=== PATIENT | male | born 1975 | race Caucasian/White ===

== ENCOUNTER 2016-08-04 07:00 | Inpatient (IN) | payer OTHER ==
[~2016-08-04] VITALS: Ht 180.3 cm; Wt 101.0 kg
[2016-09-04] VITALS (13 sets, daily range): BP systolic 100–117; BP diastolic 58–79; PULSE 65–82; RESP 15–22; Ht 180.3 cm; Wt 101.0 kg
[2016-09-04] MEDS ORDERED: SUCCINYLCHOLINE CHLORIDE 100 MG/5 ML SYG IV ONE (07:00)
[2016-09-04] MEDS ORDERED: CEFAZOLIN 2 GM/50 ML (PMX) 50 ML IVPB SCH (13:00)
[2016-09-04] MEDS ORDERED: LACTATED RINGER'S 1,000 ML IV* SCH (13:00)
[2016-09-04] MEDS ORDERED: GLYCOPYRROLATE 0.4 MG INJ ONE (13:01)
[2016-09-04] MEDS ORDERED: LIDOCAINE 2% (SDV) 5 ML INJ ONE (13:01)
[2016-09-04] MEDS ORDERED: NEOSTIGMINE 3 MG/3 ML SYRINGE ONE (13:01)
[2016-09-04] MEDS ORDERED: MIDAZOLAM 1 MG/ML 2 ML INJ ONE (13:01)
[2016-09-04] MEDS ORDERED: ROCURONIUM 50 MG INJ ONE (13:01)
[2016-09-04] MEDS ORDERED: PROPOFOL 20 ML ONE (13:01)
[2016-09-04] MEDS ORDERED: FENTAnyl 50 MCG/ML VIAL ONE ×2 (13:01→16:03)
[2016-09-04] MEDS ORDERED: ONDANSETRON 4 MG INJ ONE (13:02)
[2016-09-04] MEDS ORDERED: DEXAMETHASONE 4 MG/ML 1 ML INJ ONE (13:02)
[2016-09-04] MEDS ORDERED: THROMBIN 5000 UNIT VIAL ONE ×2 (13:35→13:43)
[2016-09-04] MEDS ORDERED: SODIUM CL BACTERIOSTATIC 30 ML INJ ONE (13:37)
[2016-09-04] MEDS ORDERED: CEFAZOLIN 1 GM INJ ONE (13:37)
[2016-09-04] MEDS ORDERED: HEPARIN 1000 UNITS/ML 10 ML INJ ONE (13:37)
[2016-09-04] MEDS ORDERED: SURGIFOAM POWDER 1 GM KIT ONE ×2 (13:37→17:03)
[2016-09-04] MEDS ORDERED: BUPIVACAINE 0.25%/EPI (SDV) 30 ML INJ ONE (13:38)
[2016-09-04] MEDS ORDERED: CA CHLORIDE 10% 10 ML SYRINGE ONE (13:44)
--- NOTE | 2016-09-04 14:04 | HPN ---
Date/Time of Note Date/Time of Note DATE: 09/04/16 TIME: 14:03 Interval H&P Admission Note Pt. seen H&P reviewed: No system changes JASE WOODS PA-C Sep 04, 2016 14:03
[2016-09-04] MEDS ORDERED: NALOXONE (0.4 MG/ML) INJ IV PRN (14:30)
[2016-09-04] MEDS ORDERED: ACETAMINOPHEN 325 MG TAB PO PRN (14:30)
[2016-09-04] MEDS ORDERED: AL HYDROX/MG HYDROX/SIMETH 30 ML CUP PO PRN (14:30)
[2016-09-04] MEDS ORDERED: HYDROmorphONE 1 MG/ML SYG IV PRN (14:30)
[2016-09-04] MEDS ORDERED: BISACODYL 10 MG SUPP PR PRN (14:30)
[2016-09-04] MEDS ORDERED: CEPASTAT LOZENGE MT PRN (14:30)
[2016-09-04] MEDS: CEFAZOLIN 1 GM/50 ML (PMX) 50 ML IVPB SCH ×2 (14:30→22:43)
[2016-09-04] MEDS ORDERED: DIPHENHYDRAMINE 50 MG INJ IV PRN (14:30)
[2016-09-04] MEDS ORDERED: ZOLPIDEM 5 MG TAB PO PRN (14:30)
[2016-09-04] MEDS ORDERED: LABETALOL HCL 20MG INJ ONE (15:08)
[2016-09-04] MEDS ORDERED: hydrALAzine 20 MG INJ ONE (15:10)
[2016-09-04] MEDS ORDERED: PHENYLephrine (100 MCG/ML) 5ML SYG ONE (15:37)
[2016-09-04] MEDS ORDERED: HEMOSTATIC MATRIX/ THROMBIN 1 EA SYG ZFS ONE (15:43)
[2016-09-04] MEDS ORDERED: CEFAZOLIN 1 GM INJ ZFS ONE (15:44)
[2016-09-04] MEDS ORDERED: BUPIVACAINE 0.25%/EPI (SDV) 30 ML INJ INJ ONE (15:46)
[2016-09-04] MEDS ORDERED: GELATIN SIZE 100 SPONGE ONE (16:06)
--- NOTE | 2016-09-04 17:11 | OPR ---
Date/Time of Note Date/Time of Note DATE: 09/04/16 TIME: 17:05 Operative Report Free Text/Dictation Co-surgeon Dr. Paramjit Herzog This operation was more difficult than usual secondary to previous nephrectomy that the patient had this added 40 minutes to the time of the exposure on the operation secondary to altered anatomy adhesions Procedure Date: Sep 04, 2016 Preoperative Diagnosis Degenerative disc disease L5-S1 Postoperative Diagnosis Degenerative disc disease L5-S1 Operation Performed Anterior retroperitoneal exposure interbody fusion at the level of L5-S1 Lysis of adhesions Surgeon: CHIOMA MONCADA MD Anesthesia: general Estimated Blood Loss: 50 - 100 ml's Complications: None Pt Condition Post Procedure: stable Indications Degenerative disc disease L5-S1 Operative\Procedure Findings Patient was taken to the operating room after induction of general anesthesia prepped and draped in usual sterile fashion Response complications alternative therapies explained to the patient consent obtained Risks and benefits of a splint to the patient included but not limited to bleeding infection damage to the bowel damage to ureter wound infection wound dehiscence is retrograde ejaculation and sexual dysfunction erectile dysfunction DVT PE the high risk nature of the operation fully explained and stressed to the patient I made a 8 cm incision left lower quadrant in a horizontal fashion Incision was then taken down to subcutaneous tissue which was then opened using electrocautery anterior rectus sheath was opened using electrocautery The left rectus muscle was retracted laterally retroperitoneal space was entered This operation was more difficult than usual secondary to previous nephrectomy that the patient had this added 40 minutes to the time of the exposure on the operation secondary to altered anatomy adhesions The retrocorneal space was entered retractors were placed retracting the bowel contents to the right and left rectus muscle to the left Adhesions were taken down The right iliac vessels were dissected using a peanut dissector The left iliac vessels were dissected using the peanut dissector the middle sacral vessels were ligated using titanium clips The risk exposure for L5-S1 disc space was obtained by retracting the right iliac vessels to the right and left iliac vessels to the left We proceeded with a discectomy and placement of the new cage Please refer to Dr. Herzog dictations for the details of that operation After all the x-rays were satisfactory read the wound was irrigated using antibiotic solution The anterior rectus sheath was closed using a #1 #1 Vicryl suture in a running fashion the wound was irrigated again and closed in 2 layers of 2-0 Vicryl suture for subcu and Steri-Strips for the skin The patient tolerated procedure well CHIOMA MONCADA MD Sep 04, 2016 17:11
--- NOTE | 2016-09-04 18:08 | OPPN ---
Date/Time of Note Date/Time of Note DATE: 09/04/16 TIME: 18:06 Operative Report Preoperative Diagnosis L5-S1 DDD and stenosis Postoperative Diagnosis L5-S1 DDD and stenosis Operation/Procedure Performed L5-S1 anterior and posterior fusion Provider: LADY JOHNSON MD psychiatric nursing assistant: JASE WOODS PA-C Anesthesia: general Estimated blood loss: 100 - 150 ml's Specimens L5-S1 disc Complications: None JASE WOODS PA-C Sep 04, 2016 18:08
[2016-09-04] MEDS: HYDROmorphONE 0.2 MG/ML PCA IV SCH ×2 (18:13→23:01)
[2016-09-04] MEDS ORDERED: HYDROmorphONE (0.2 MG/ML) 10ML SYG IV ONE (18:13)
[2016-09-04] MEDS: HYDROmorphONE (0.2 MG/ML) 10ML SYG IV PRN ×2 (18:29→18:47)
[2016-09-04] MEDS ORDERED: FENTAnyl 50 MCG/ML VIAL IV PRN (18:30)
[2016-09-04] MEDS ORDERED: ONDANSETRON 4 MG INJ IV PRN (18:30)
--- NOTE | 2016-09-04 20:12 | RADRPT ---
PROCEDURE: Intraoperative imaging of the lumbar spine with fluoroscopy. CLINICAL INDICATION: Back pain. Intraoperative. TECHNIQUE: 47 images of the lumbar spine were obtained in the operating room with an image intensi fier. No radiologist was in attendance. 75 seconds of fluoroscopy time was used. COMPARISON: No prior study is available for comparison. FINDINGS: For the purposes of this report, the last apparent true disc level is considered to be L5-S1. Based on this, anterior fusion is noted at L5-S1. Posterior pedicle screws and connecting rods are prese nt at L5-S1. IMPRESSION: 1. Intraoperative imaging of the lumbar spine. RPTAT: QQ .Omar Law MD, MD Date Time Electronically viewed and signed by .Omar Law MD, on 09/04/2016 20:11 .R/
--- NOTE | 2016-09-04 20:37 | RADRPT ---
PROCEDURE: Intraoperative imaging of the lumbar spine with fluoroscopy. CLINICAL INDICATION: Back pain. Intraoperative. TECHNIQUE: 12 images of the lumbar spine were obtained in the operating room with an image intensi fier. No radiologist was in attendance. 0.4 minutes of fluoroscopy time was used. COMPARISON: No prior study is available for comparison. FINDINGS: Images demonstrate anterior and posterior fusion at L5-S1. IMPRESSION: 1. Intraoperative imaging of the lumbar spine. RPTAT: QQ .Omar Law MD, MD Date Time Electronically viewed and signed by .Omar Law MD, MD on 09/04/2016 20:37 .R/
[2016-09-04] MEDS: D5W-0.45 NACL + KCL 20 MEQ 1,000 ML IV SCH (20:45)
[2016-09-04] MEDS: DOCUSATE SODIUM 100 MG CAP PO SCH (21:00)
[2016-09-04] MEDS: ZOLPIDEM 5 MG TAB PO PRN (22:03)
[2016-09-05] MEDS: D5W-0.45 NACL + KCL 20 MEQ 1,000 ML IV SCH ×3 (00:03→16:11)
[2016-09-05] MEDS: PANTOPRAZOLE 40 MG INJ IV SCH (05:09)
[2016-09-05 05:11] LABS: ADD SCAN DIFF NO
[2016-09-05 05:16] LABS: ABNORMAL IP MESSAGE 1; BASOPHILS % 0.1 % (0.0-2.0); HEMATOCRIT 41.1 % (42.0-52.0); LYMPHOCYTES # 0.6 10^3/ul (0.8-2.9); LYMPHOCYTES % 4.4 % (15.0-51.0); MEAN CORPUSCULAR HEMOGLOBIN 28.9 pg (29.0-33.0); MEAN CORPUSCULAR HGB CONC 34.1 g/dl (32.0-37.0); MEAN CORPUSCULAR VOLUME 84.7 fl (82.0-101.0); MEAN PLATELET VOLUME 9.7 fl (7.4-10.4); MONOCYTE # 0.4 10^3/ul (0.3-0.9); MONOCYTES % 3.5 % (0.0-11.0); NEUTROPHIL # 11.7 10^3/ul (1.6-7.5); NEUTROPHILS % 91.4 % (39.0-77.0); PLATELET COUNT 273 10^3/UL (140-415); RED BLOOD COUNT 4.85 10^6/ul (4.70-6.10); RED CELL DISTRIBUTION WIDTH 12.5 % (11.5-14.5); WHITE BLOOD COUNT 12.7 10^3/ul (4.8-10.8)
[2016-09-05] MEDS: HYDROmorphONE 0.2 MG/ML PCA IV SCH ×2 (05:20→16:09)
[2016-09-05 05:47] LABS: CALCIUM 8.6 mg/dl (8.4-10.2); CREATININE 1.1 mg/dl (0.61-1.24); MAGNESIUM 1.7 mg/dl (1.7-2.5); POTASSIUM 5.1 mmol/L (3.5-5.1)
[2016-09-05] MEDS: CEFAZOLIN 1 GM/50 ML (PMX) 50 ML IVPB SCH (06:03)
[2016-09-05] MEDS: ONDANSETRON 4 MG INJ IV PRN (06:53)
[2016-09-05 07:54] VITALS: BP 116/59; RESP 14
[2016-09-05] MEDS: DOCUSATE SODIUM 100 MG CAP PO SCH ×2 (09:33→20:12)
[2016-09-05 12:00] VITALS: BP 110/60; PULSE 77; RESP 18
[2016-09-05 16:20] VITALS: BP 142/72; PULSE 93; RESP 18
--- NOTE | 2016-09-05 17:03 | CONS ---
Date/Time of Note Date/Time of Note DATE: 09/05/16 TIME: 16:54 Assessment/Plan Assessment/Plan Additional Assessment/Plan 41-year-old gentleman with medical history significant for hypertension and obesity, presents to the hospital for an elective back surgery. Is currently status post L5-S1 anterior and posterior fusion, without any significant post operative complications. 1. L5-S1 fusion, pain control, PT OT evaluation and treatment, wound management per spinal surgery team\ 2. Hypertension, continue to monitor provide blood pressure medications as needed 3. Hyperkalemia, within normal limits continue to monitor 4. Full code Consultation Date/Type/Reason Admit Date/Time Sep 04, 2016 at 12:00 Date of Consultation: Sep 05, 2016 Type of Consultation: General internal medicine Reason for Consultation General medical management, hypertension, hyperkalemia. Hx of Present Illness Patient is a very pleasant 41-year-old gentleman with history of hypertension secondary to nonfunctioning kidney status post nephrectomy, presents to the hospital for an elective spinal procedure for chronic back pain. Patient underwent an elective L5-S1 anterior and posterior fusion, tolerated procedure well without any major complications. Patient is currently recovering on the hospital floor. Patient is currently chest pain, diaphoresis, shortness of breath. Does have some lightheadedness and dizziness with standing, which is expected. Patient's back pain has improved no fevers or chills. Tolerating oral diet. No evidence of numbness or tingling in the bilateral lower legs, patient noted mild swelling of his foot which can be expected. Constitutional: improved, no complaints Eyes: no complaints Cardiovascular: no complaints, No chest pain Gastrointestinal: no complaints, No pain Genitourinary: no complaints Past Medical History Hypertension, back pain, obesity. Past Surgical History Appendectomy, kidney removal. Family History Significant Family History: no pertinent family hx, other (Father with diabetes , mother with high blood pressure.) Social History Denies any current drugs, alcohol, tobacco. Alcohol Use: occasionally Smoking Status: Never smoker Exam/Review of Systems Vital Signs Vitals Vital Signs Date Time Temp Pulse Resp B/P Pulse Ox O2 Delivery O2 Flow Rate FiO2 09/05/16 16:20 97.0 93 18 142/72 98 Nasal Cannula 09/05/16 12:00 2.0 Intake and Output 09/04/16 09/04/16 09/05/16 15:00 23:00 07:00 Intake Total 1350 ml 170 ml Output Total 550 ml 500 ml Balance 800 ml -330 ml Exam Constitutional: alert, oriented, well developed Psych: no complaints Head: atraumatic, normocephalic Eyes: EOMI, nl conjunctiva ENMT: nl external ears & nose Neck: supple Respiratory: clear to auscultation Cardiovascular: regular rate and rhythm Gastrointestinal: nl liver, spleen, non-tender, soft Musculoskeletal: nl extremities to inspection Extremities: normal pulses, No calf tenderness Neurological: REMEDIAL MASSEUR II-XII intact, nl mental status, nl speech Skin: nl turgor Lymph: nl lymph nodes, No enlarged Results Result Diagram: 09/05/1643209/05/16432 Results 24 hrs Laboratory Tests Test 09/05/16 04:33 White Blood Count 12.7 H Red Blood Count 4.85 Hemoglobin 14.0 Hematocrit 41.1 L Mean Corpuscular Volume 84.7 Mean Corpuscular Hemoglobin 28.9 L Mean Corpuscular Hemoglobin Concent 34.1 Red Cell Distribution Width 12.5 Platelet Count 273 Mean Platelet Volume 9.7 Neutrophils % 91.4 H Lymphocytes % 4.4 L Monocytes % 3.5 Eosinophils % 0.0 Basophils % 0.1 Nucleated Red Blood Cells % 0.0 Neutrophils # 11.7 H Lymphocytes # 0.6 L Monocytes # 0.4 Eosinophils # 0.0 Basophils # 0.0 Nucleated Red Blood Cells # 0.0 Sodium Level 135 Potassium Level 5.1 Chloride Level 100 Carbon Dioxide Level 26 Anion Gap 14 Blood Urea Nitrogen 13 Creatinine 1.10 Glucose Level 173 Calcium Level 8.6 Magnesium Level 1.7 Medications Medications Current Medications Potassium Chloride/Dextrose/ Sod Cl (D5-1/2ns + KCl 20 Meq) 1,000 ml @ 100 mls/ hr Q10H IV Last administered on 09/05/16t 16:11; Admin Dose 100 MLS/HR; Start at 14:03 Oxycodone/ Acetaminophen (Endocet (10/ 325)) 1 tab Q4H PRN PO PAIN LEVEL 1-5; Start 09/06/16 at 10:00 Oxycodone/ Acetaminophen (Endocet (10/ 325)) 2 tab Q4H PRN PO PAIN LEVEL 6-10; Start 09/06/16 at 10:00 Hydromorphone HCl (Dilaudid) 0.2 mg Q1H PRN IV BREAKTHROUGH PAIN; Start at 14:30 Ondansetron HCl (Zofran Inj) 4 mg Q6H PRN IV NAUSEA AND/OR VOMITING Last administered on 09/05/16 06:53; Admin Dose 4 MG; Start 09/04/16 at 14:30 Bisacodyl (Dulcolax Supp) 10 mg DAILY PRN [place] CONSTIPATION; Start 09/04/16 at 14: 30 Docusate Sodium (Colace) 100 mg BID PO Last administered on 09/05/16 09:33; Admin Dose 100 MG; Start 09/04/16 at 21:00 Pantoprazole (Protonix Iv) 40 mg DAILY@06 IV Last administered on 09/05/16 05: 09; Admin Dose 40 MG; Start 09/05/16 at 06:00 Al Hydrox/Mg Hydrox/Simethicone (Mag-Al Plus) 15 ml Q6H PRN PO CONSTIPATION/ DYSPEPSIA; Start 09/04/16 at 14:30 Acetaminophen (Tylenol Tab) 650 mg Q4H PRN PO LORD OR TEMP GREATER THAN 101.3F; Start 09/04/16 at 14:30 Cyclobenzaprine HCl (Flexeril) 10 mg TID PRN PO MUSCLE SPASMS; Start 09/04/16 at 14:30 Phenol (Cepastat Lozenge) 1 lozenge PRN PRN [place] SORE THROAT; Start 09/04/16 at 14 :30 Diphenhydramine HCl (Benadryl) 25 mg Q6H PRN IV ITCHING; Start 09/04/16 at 14:30 Naloxone HCl (Narcan) 0.2 mg Q2M PRN IV RR 8 BREATHS/MIN OR LESS; Start at 14:30 Hydromorphone HCl (Dilaudid BULK CLERK) BULK CLERK to be started in PACU Q4PCA IV Last administered on 09/05/16 16:09; Admin Dose 6 MG; Start 09/04/16 at 14:30; Stop at 10:00 Miscellaneous Information 1. Hold BULK CLERK at 1,000... BULK CLERK IV ; Start 09/04/16 at 14: 30; Stop 09/06/16 at 10:00 ROSE ESCALONA MD Sep 05, 2016 17:03
[2016-09-05 19:25] VITALS: BP 147/65; RESP 18; RESP 20
[2016-09-05] MEDS: ZOLPIDEM 5 MG TAB PO PRN (21:01)
[2016-09-06 01:00] VITALS: BP 126/60; PULSE 72; RESP 18
[2016-09-06] MEDS: D5W-0.45 NACL + KCL 20 MEQ 1,000 ML IV SCH ×4 (03:32→23:30)
[2016-09-06] MEDS: HYDROmorphONE 0.2 MG/ML PCA IV SCH (03:38)
[2016-09-06 04:00] VITALS: BP 123/68; PULSE 75; RESP 18
[2016-09-06] MEDS: PANTOPRAZOLE 40 MG INJ IV SCH (05:06)
[2016-09-06 05:32] LABS: ADD SCAN DIFF NO
[2016-09-06 05:39] LABS: BASOPHILS % 0.3 % (0.0-2.0); EOSINOPHILS % 0.2 % (0.0-7.0); HEMATOCRIT 39.6 % (42.0-52.0); HEMOGLOBIN 13.4 g/dl (14.0-18.0); LYMPHOCYTES # 1.5 10^3/ul (0.8-2.9); LYMPHOCYTES % 14.3 % (15.0-51.0); MEAN CORPUSCULAR HEMOGLOBIN 28.8 pg (29.0-33.0); MEAN CORPUSCULAR HGB CONC 33.8 g/dl (32.0-37.0); MEAN CORPUSCULAR VOLUME 85.2 fl (82.0-101.0); MEAN PLATELET VOLUME 9.7 fl (7.4-10.4); MONOCYTE # 0.8 10^3/ul (0.3-0.9); MONOCYTES % 7.8 % (0.0-11.0); NEUTROPHIL # 8.1 10^3/ul (1.6-7.5); PLATELET COUNT 248 10^3/UL (140-415); RED BLOOD COUNT 4.65 10^6/ul (4.70-6.10); RED CELL DISTRIBUTION WIDTH 12.6 % (11.5-14.5); WHITE BLOOD COUNT 10.5 10^3/ul (4.8-10.8)
[2016-09-06 06:16] LABS: CALCIUM 8.9 mg/dl (8.4-10.2); CREATININE 0.91 mg/dl (0.61-1.24); MAGNESIUM 1.9 mg/dl (1.7-2.5)
[2016-09-06 08:04] VITALS: BP 130/73; RESP 17
[2016-09-06] MEDS: DOCUSATE SODIUM 100 MG CAP PO SCH ×2 (09:36→20:10)
[2016-09-06] MEDS: OXYCODONE/ACETAMINOPHEN (10/325) TAB PO PRN ×4 (09:37→23:59)
[2016-09-06] MEDS ORDERED: OXYCODONE/ACETAMINOPHEN (10/325) TAB PO PRN (10:00)
--- NOTE | 2016-09-06 10:44 | PN ---
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 +BS Results Result Diagram: 09/06/16 0442 09/06/16 0442 LADY JOHNSON MD Sep 06, 2016 10:44
[2016-09-06 19:15] VITALS: BP 131/69; RESP 18
--- NOTE | 2016-09-06 19:45 | CONS ---
Date/Time of Note Date/Time of Note DATE: 09/06/16 TIME: 19:43 Assessment/Plan Assessment/Plan Chief Complaint/Hosp Course Patient is a very pleasant 41-year-old gentleman with history of hypertension secondary to nonfunctioning kidney status post nephrectomy, presents to the hospital for an elective spinal procedure for chronic back pain. Patient underwent an elective L5-S1 anterior and posterior fusion, tolerated procedure well without any major complications. Patient is currently recovering on the hospital floor. Patient is currently chest pain, diaphoresis, shortness of breath. Does have some lightheadedness and dizziness with standing, which is expected. Patient's back pain has improved no fevers or chills. Tolerating oral diet. No evidence of numbness or tingling in the bilateral lower legs, patient noted mild swelling of his foot which can be expected. Problems: Additional Assessment/Plan 41-year-old gentleman with medical history significant for hypertension and obesity, presents to the hospital for an elective back surgery. Is currently status post L5-S1 anterior and posterior fusion, without any significant post operative complications. 1. L5-S1 fusion, pain control, PT OT evaluation and treatment, wound management per spinal surgery team -Continue rehab, pain control. DC planning per surgical team. 2. Hypertension, continue to monitor provide blood pressure medications as needed -Continue to monitor, provide as needed blood pressure medication as needed. 3. Hyperkalemia, within normal limits continue to monitor 4. Full code Dr. Raygoza will return tomorrow to medically follow. Consultation Date/Type/Reason Admit Date/Time Sep 04, 2016 at 12:00 Initial Consult Date 09/05/16 Type of Consultation: General internal medicine 24 HR Interval Summary Free Text/Dictation Patient states that he is improving overall, strength returning. Pain is controlled. No fevers or chills. Able to ambulate to the bathroom by himself, wound without any aches excessive drainage. Constitutional: improved, no complaints Exam/Review of Systems Vital Signs Vitals Vital Signs Date Time Temp Pulse Resp B/P Pulse Ox O2 Delivery O2 Flow Rate FiO2 09/06/16 19:15 98.3 103 18 131/69 96 09/06/16 04:00 Room Air 09/05/16 12:00 2.0 Intake and Output 09/05/16 09/05/16 09/06/16 15:00 23:00 07:00 Intake Total 2100 ml 1400 ml Output Total 2000 ml 400 ml Balance 100 ml 1000 ml Exam Constitutional: alert, oriented, well developed Psych: no complaints Head: atraumatic, normocephalic Eyes: nl conjunctiva Neck: supple Respiratory: clear to auscultation Cardiovascular: nl pulses, regular rate and rhythm Gastrointestinal: ascites, nl liver, spleen, soft Musculoskeletal: nl extremities to inspection Extremities: normal pulses Neurological: SURVEY ENGINEER II-XII intact, nl speech Results Result Diagram: 09/06/1644109/06/16441 Results 24 hrs Laboratory Tests Test 09/06/16 04:42 White Blood Count 10.5 Red Blood Count 4.65 L Hemoglobin 13.4 L Hematocrit 39.6 L Mean Corpuscular Volume 85.2 Mean Corpuscular Hemoglobin 28.8 L Mean Corpuscular Hemoglobin Concent 33.8 Red Cell Distribution Width 12.6 Platelet Count 248 Mean Platelet Volume 9.7 Neutrophils % 77.0 Lymphocytes % 14.3 L Monocytes % 7.8 Eosinophils % 0.2 Basophils % 0.3 Nucleated Red Blood Cells % 0.0 Neutrophils # 8.1 H Lymphocytes # 1.5 Monocytes # 0.8 Eosinophils # 0.0 Basophils # 0.0 Nucleated Red Blood Cells # 0.0 Sodium Level 139 Potassium Level 4.0 Chloride Level 98 Carbon Dioxide Level 29 Anion Gap 16 Blood Urea Nitrogen 13 Creatinine 0.91 Glucose Level 116 # Calcium Level 8.9 Magnesium Level 1.9 Medications Medications Current Medications Oxycodone/ Acetaminophen (Endocet (10/ 325)) 1 tab Q4H PRN PO PAIN LEVEL 1-5; Start 09/06/16 at 10:00 Oxycodone/ Acetaminophen (Endocet (10/ 325)) 2 tab Q4H PRN PO PAIN LEVEL 6-10 Last administered on 09/06/16 18:38; Admin Dose 2 TAB; Start 09/06/16 at 10:00 Hydromorphone HCl (Dilaudid) 0.2 mg Q1H PRN IV BREAKTHROUGH PAIN; Start at 14:30 Ondansetron HCl (Zofran Inj) 4 mg Q6H PRN IV NAUSEA AND/OR VOMITING Last administered on 09/05/16 06:53; Admin Dose 4 MG; Start 09/04/16 at 14:30 Bisacodyl (Dulcolax Supp) 10 mg DAILY PRN [place] CONSTIPATION; Start 09/04/16 at 14: 30 Docusate Sodium (Colace) 100 mg BID PO Last administered on 09/06/16 09:36; Admin Dose 100 MG; Start 09/04/16 at 21:00 Pantoprazole (Protonix Iv) 40 mg DAILY@06 IV Last administered on 09/06/16 05: 06; Admin Dose 40 MG; Start 09/05/16 at 06:00 Al Hydrox/Mg Hydrox/Simethicone (Mag-Al Plus) 15 ml Q6H PRN PO CONSTIPATION/ DYSPEPSIA; Start 09/04/16 at 14:30 Acetaminophen (Tylenol Tab) 650 mg Q4H PRN PO LORD OR TEMP GREATER THAN 101.3F; Start 09/04/16 at 14:30 Cyclobenzaprine HCl (Flexeril) 10 mg TID PRN PO MUSCLE SPASMS; Start 09/04/16 at 14:30 Phenol (Cepastat Lozenge) 1 lozenge PRN PRN [place] SORE THROAT; Start 09/04/16 at 14 :30 Diphenhydramine HCl (Benadryl) 25 mg Q6H PRN IV ITCHING; Start 09/04/16 at 14:30 Naloxone HCl 0.2 mg 0.2 mg Q2M PRN IV RR 8 BREATHS/MIN OR LESS; Start 09/04/16 at 14:30 Potassium Chloride/Dextrose/ Sod Cl (D5-1/2ns + KCl 20 Meq) 1,000 ml @ 100 mls/ hr Q10H IV Last administered on 09/06/16 14:03; Admin Dose 100 MLS/HR; Start at 03:30 ROSE ESCALONA MD Sep 06, 2016 19:45
[2016-09-06] MEDS: CYCLOBENZAPRINE 10 MG TAB PO PRN (20:10)
[2016-09-07] MEDS: ONDANSETRON 4 MG INJ IV PRN (00:06)
[2016-09-07] MEDS: OXYCODONE/ACETAMINOPHEN (10/325) TAB PO PRN ×3 (04:11→13:07)
[2016-09-07 05:02] LABS: ADD SCAN DIFF NO
[2016-09-07 05:14] LABS: BASOPHIL # 0.1 10^3/ul (0.0-0.1); BASOPHILS % 0.5 % (0.0-2.0); EOSINOPHILS # 0.1 10^3/ul (0.0-0.5); EOSINOPHILS % 0.5 % (0.0-7.0); HEMATOCRIT 39.5 % (42.0-52.0); HEMOGLOBIN 13.2 g/dl (14.0-18.0); LYMPHOCYTES # 2.2 10^3/ul (0.8-2.9); LYMPHOCYTES % 22.4 % (15.0-51.0); MEAN CORPUSCULAR HEMOGLOBIN 28.5 pg (29.0-33.0); MEAN CORPUSCULAR HGB CONC 33.4 g/dl (32.0-37.0); MEAN CORPUSCULAR VOLUME 85.3 fl (82.0-101.0); MEAN PLATELET VOLUME 9.4 fl (7.4-10.4); MONOCYTE # 0.8 10^3/ul (0.3-0.9); MONOCYTES % 8.2 % (0.0-11.0); NEUTROPHIL # 6.6 10^3/ul (1.6-7.5); PLATELET COUNT 239 10^3/UL (140-415); RED BLOOD COUNT 4.63 10^6/ul (4.70-6.10); RED CELL DISTRIBUTION WIDTH 12.5 % (11.5-14.5); WHITE BLOOD COUNT 9.8 10^3/ul (4.8-10.8)
[2016-09-07 05:40] LABS: CALCIUM 8.9 mg/dl (8.4-10.2); CREATININE 1.14 mg/dl (0.61-1.24); MAGNESIUM 1.7 mg/dl (1.7-2.5); POTASSIUM 3.7 mmol/L (3.5-5.1)
[2016-09-07 05:49] LABS: ALBUMIN 3.9 g/dl (3.3-4.9); PHOSPHORUS 3.1 mg/dl (2.5-4.9)
[2016-09-07] MEDS: CYCLOBENZAPRINE 10 MG TAB PO PRN ×2 (06:28→15:42)
[2016-09-07] MEDS: PANTOPRAZOLE 40 MG INJ IV SCH (06:28)
[2016-09-07] MEDS: DOCUSATE SODIUM 100 MG CAP PO SCH (08:46)
[2016-09-07] MEDS: D5W-0.45 NACL + KCL 20 MEQ 1,000 ML IV SCH (08:50)
[2016-09-07 08:52] VITALS: BP 131/80; RESP 18
--- NOTE | 2016-09-07 09:00 | CONS ---
Date/Time of Note Date/Time of Note DATE: 09/07/16 TIME: 08:58 Assessment/Plan Assessment/Plan Additional Assessment/Plan 1. Doing well post op lumbar laminectomy, labs rev, OK to dc per ortho and PT Consultation Date/Type/Reason Admit Date/Time Sep 04, 2016 at 12:00 Initial Consult Date 09/05/16 Type of Consultation: General internal medicine Detailed Summary Respiratory: No cough, No shortness of breath Gastrointestinal: other (constiopated), No pain Genitourinary: no complaints Musculoskeletal: back pain (mild-moderate) Exam/Review of Systems Vital Signs Vitals Vital Signs Date Time Temp Pulse Resp B/P Pulse Ox O2 Delivery O2 Flow Rate FiO2 09/07/16 08:52 98.1 91 18 131/80 97 09/06/16 04:00 Room Air 09/05/16 12:00 2.0 Intake and Output 09/06/16 09/06/16 09/07/16 15:00 23:00 07:00 Intake Total 720 ml 820 ml Output Total 450 ml 1000 ml Balance 270 ml -180 ml Exam Neck: No jvd Respiratory: clear to auscultation Cardiovascular: regular rate and rhythm Gastrointestinal: other (sl distended but not tender) Extremities: No edema (and no calf tend) Results Result Diagram: 09/07/165 09/07/16 0445 Results 24 hrs Laboratory Tests Test 09/07/16 04:45 White Blood Count 9.8 Red Blood Count 4.63 L Hemoglobin 13.2 L Hematocrit 39.5 L Mean Corpuscular Volume 85.3 Mean Corpuscular Hemoglobin 28.5 L Mean Corpuscular Hemoglobin Concent 33.4 Red Cell Distribution Width 12.5 Platelet Count 239 Mean Platelet Volume 9.4 Neutrophils % 68.0 Lymphocytes % 22.4 Monocytes % 8.2 Eosinophils % 0.5 Basophils % 0.5 Nucleated Red Blood Cells % 0.0 Neutrophils # 6.6 Lymphocytes # 2.2 Monocytes # 0.8 Eosinophils # 0.1 Basophils # 0.1 Nucleated Red Blood Cells # 0.0 Sodium Level 136 Potassium Level 3.7 Chloride Level 96 L Carbon Dioxide Level 28 Anion Gap 16 Blood Urea Nitrogen 14 Creatinine 1.14 Glucose Level 112 Calcium Level 8.9 Phosphorus Level 3.1 Magnesium Level 1.7 Albumin 3.9 Medications Medications Current Medications Oxycodone/ Acetaminophen (Endocet ( 325)) 1 tab Q4H PRN PO PAIN LEVEL 1-5; Start 09/06/16 at 10:00 Oxycodone/ Acetaminophen (Endocet (10/ 325)) 2 tab Q4H PRN PO PAIN LEVEL 6-10 Last administered on 09/07/16 08:50; Admin Dose 2 TAB; Start 09/06/16 at 10:00 Hydromorphone HCl (Dilaudid) 0.2 mg Q1H PRN IV BREAKTHROUGH PAIN; Start at 14:30 Ondansetron HCl (Zofran Inj) 4 mg Q6H PRN IV NAUSEA AND/OR VOMITING Last administered on 09/07/16 00:06; Admin Dose 4 MG; Start 09/04/16 at 14:30 Bisacodyl (Dulcolax Supp) 10 mg DAILY PRN [place] CONSTIPATION; Start 09/04/16 at 14: 30 Docusate Sodium (Colace) 100 mg BID PO Last administered on 09/07/16 08:46; Admin Dose 100 MG; Start 09/04/16 at 21:00 Pantoprazole (Protonix Iv) 40 mg DAILY@06 IV Last administered on 09/07/16 06: 28; Admin Dose 40 MG; Start 09/05/16 at 06:00 Al Hydrox/Mg Hydrox/Simethicone (Mag-Al Plus) 15 ml Q6H PRN PO CONSTIPATION/ DYSPEPSIA Last administered on 09/07/16 06:29; Admin Dose 15 ML; Start 09/04/16 at 14:30 Acetaminophen (Tylenol Tab) 650 mg Q4H PRN PO LORD OR TEMP GREATER THAN 101.3F; Start 09/04/16 at 14:30 Cyclobenzaprine HCl (Flexeril) 10 mg TID PRN PO MUSCLE SPASMS Last administered on 09/07/16 06:28; Admin Dose 10 MG; Start 09/04/16 at 14:30 Phenol (Cepastat Lozenge) 1 lozenge PRN PRN [place] SORE THROAT; Start 09/04/16 at 14 :30 Diphenhydramine HCl (Benadryl) 25 mg Q6H PRN IV ITCHING; Start 09/04/16 at 14:30 Naloxone HCl 0.2 mg 0.2 mg Q2M PRN IV RR 8 BREATHS/MIN OR LESS; Start 09/04/16 at 14:30 Potassium Chloride/Dextrose/ Sod Cl (D5-1/2ns + KCl 20 Meq) 1,000 ml @ 100 mls/ hr Q10H IV Last administered on 09/06/16t 14:03; Admin Dose 100 MLS/HR; Start at 03:30 ELIZABETH JONES MD Sep 07, 2016 09:00
--- NOTE | 2016-09-07 14:21 | PDOCDIS ---
Discharge Instructions DIAGNOSIS Discharge Diagnosis s/p lumbar fusion CONDITION Patient Condition: Good HOME CARE INSTRUCTIONS: Diet Instructions: Regular ACTIVITY: Activity Restrictions: Slowly Increase Activity Rest between Activity Avoid heavy lifting Do not Drive Do not operate Machinery Do not operate Power Tool Avoid Heavy Housework Bathing Restrictions: ShowerActivity Restrictions Comment: no bending, lifting > 10 pounds, twisting FOLLOW UP/APPOINTMENTS Follow-up Plan f/u appt given JASE WOODS PA-C Sep 07, 2016 14:20
[2016-09-08] MEDS ORDERED: PANTOPRAZOLE (EC) 40 MG TAB PO SCH (06:00)
--- NOTE | 2016-09-14 03:52 | OPR ---
DATE OF OPERATION: 09/04/2016 PREOPERATIVE DIAGNOSIS: 1. L5-S1 listhesis. 2. Lumbar stenosis. 3. Lumbosacral radiculitis. POSTOPERATIVE DIAGNOSIS: 1. L5-S1 listhesis. 2. Lumbar stenosis. 3. Lumbosacral radiculitis. IMPLANTS: 1. Renovis, Standalone 38 mm width, 30 mm depth, 13 mm height. 2. Lordotic with 25 mm screws. 3. Fibergraft. PROCEDURE PERFORMED: 1. Anterior lumbar antibody fusion at L5-S1. 2. Placement of intervertebral biomechanical device L5-S1. 3. Anterior hardware placement at L5-S1. 4. Use of C-arm fluoroscopy without radiologist present. 5. Use of allograft. 6. Intraoperative neural monitoring (1.5 hours). PRIMARY SURGEON: Sean Herzog MD CO-SURGEON: Marek Gallo MD SECOND PERFORATOR: YUSRA Cox NEED FOR CO-SURGEON: Co-Surgeon was required in order to provide the vascular access. This is the standard care. FINDINGS: Neural monitoring at the start of the case revealed outside amplitude down 20 percent bilaterally, S1 amplitude down 50 percent on the left, 20 percent on the right. All nerve signals returned to normal again at end of the case. The patient had collapse and listhesis at the L5-S1 level resulting in stenosis. ESTIMATED BLOOD LOSS: 100 cc. DRAINS: None. SPECIMENS: L5-S1 disk was sent to pathology. COMPLICATIONS OF PROCEDURE: None. ANESTHESIOLOGIST: Bebo Weston MD TYPE OF ANESTHESIA: General. INDICATIONS FOR PROCEDURE: This is a 41-year-old gentleman with low back and leg pain in the setting of listhesis at L5-S1 with instability and stenosis. He had failed nonoperative measures, therefore I recommended proceeding with the above mentioned surgery. Preoperatively I discussed risks, benefits, alternatives. He understood and wished to proceed. The patient has had a previous mesh for hernia as well as nephrectomy, and therefore preoperative imaging was done in order to confirm that the spine was accessible from the anterior approach. This altered the field complicating the procedure. DESCRIPTION OF PROCEDURE: The patient was identified in the proper preholding area, given Ancef Antiioticsin the operating room where he was successfully placed under general anesthesia. Neural monitoring leads were placed, SCD were applied, Lainez catheter was introduced, arterial line was placed. Neural monitoring was utilized during this stage of the procedure for 1.5 hours to include SSEP, MEP, EMG. This was performed by [employer]. Start time was 3 p.m., closure time was 4:30 p.m. The patient was placed on the operating room table in the supine position. Abdomen was prepped in the usual sterile fashion. A left sided anterior abdominal retroperitoneal approach was performed by Dr. Gallo. He will dictate the approach separately. The patient had scar tissue due to the previous abdominal surgeries alternating the butler, adding at least 30 minutes of the exposure. Once Dr. Gallo approached the spine, I placed a bent spinal needle into the L5-S1 level. AP and lateral imaging was obtained to confirm the correct levels. I then made a long radical discectomy using curettes and Kerrison punches and pituitary rongeurs. I was able to perform a radical discectomy and prepare the endplates. I stretched the disc space with spreaders and then placed various trials and chose the appropriate graft height. I then took the titanium cage within which I placed allograft and impacted a neural vertebral biomechanical device into the L5-S1 level under the C-arm guidance. I then placed anterior screws at L5 and S1 with the anterior plate. At this point all nerve signals returned to normal. The wound was then irrigated. Dr. Gallo achieved hemostasis and placed the nushield device and proceeded to close the wound in layers. He will dictate the closure as well separately. Laps, sponge, and instrument counts were correct times 2. There were no apparent complications during this stage 1 surgery. He will then be positioned in prone position for stage 2, which will be dictated separately. Dictated By: Sean Herzog MD /olga/jo ann /Document#: [id number] LE[facility]
--- NOTE | 2016-09-14 03:58 | OPR ---
DATE OF OPERATION: 09/04/2016 PREOPERATIVE DIAGNOSIS: Status post L5-S1 anterior lumbar antibody fusion. POSTOPERATIVE DIAGNOSIS: Status post L5-S1 anterior lumbar antibody fusion. IMPLANTS: 1. Wilmore Rutledge pedicle screw 6.5 by 45 mm at L5 bilaterally and 6.5 by 40 mm at S1 bilaterally. 2. Fibergraft. PROCEDURE: 1. Pedicle screw placement at L5 and S1 bilaterally. 2. Posterolateral fusion at L5-S1. 3. Use of C-arm fluoro without radiologist present. 4. Intraoperative monitoring (1.5 hours). PRIMARY SURGEON: Sean Herzog MD MANUSCRIPTS CURATOR: Elo Cameron PA-c. FIRST SEO MANAGER: Surgical assistance was required to retract the neurovascular element, this cannot be done with a transportation engineering technician. FINDINGS: Neural monitoring to start and at the end of this stage was normal. ESTIMATED BLOOD LOSS: 20 cc. DRAINS: None. SPECIMENS: None. COMPLICATIONS: None. ANESTHESIOLOGIST: Dr. Weston. ANESTHESIA: General. INDICATIONS FOR PROCEDURE: This is a 41-year-old gentleman, who has completed stage 1 anterior fusion for L5-S1 disk disease. Stage 1 was completed and dictated separately. DESCRIPTION OF PROCEDURE: After completion of the stage 1 procedure which was dictated separately, the patient was placed in the prone position on the Miguel frame. All bony prominences were padded. The left shoulder was quite stiff and we took great care to position this appropriately and supported. The patient already had neural monitoring leads in place as well as sequential compressive devices. Neural monitoring was utilized during this stage for 1.5 hours to include SSeP, MEP, EMG. This was performed by [facility]. Start time for this stage was 4:30, closure time was 6:00 p.m. The patient was placed in the prone position. All bony prominences were padded and the back was then prepped and draped in the usual sterile fashion. Using the C-arm fluoroscope identified the incision sites. I anesthetized the skin with Marcaine and epinephrine. I made bilateral parasaggital incisions over the L5- S1 pedicles. Incision was taken down to the dorsal fascia. I next advanced Jamshidi needle into the L5 and S1 pedicles bilaterally with biplanar fluoroscopy. Once the Jamshidi needles were in place, I placed guidewires followed by placement of the appropriate pedicle screws. I confirmed placement with the C-arm fluoroscope. I stimulated each of the screws and there was no evidence of cortical breach. I then placed 50 mm rods bilaterally and tied the said screws per manufacturing maintenance technician's specification and removed the extended tabs. I then prepared the posterolateral gutters and placed the allograft for posterolateral fusion at L5- S1. The wound was irrigated. I then closed deep fascia with a number 1 Vicryl stitch. Final images were obtained. I was happy with placement of the hardware in the lamina of the spine. After closure of the deep fascia, subcutaneous tissue and subcuticular layers were then closed. Dermabond was then applied. The patient was then awakened from anesthesia and taken to recovery room in stable condition. Lap, sponge, instrument counts correct times 2. There were no apparent complications during the procedure. The patient will be admitted to the [facility] for routine postoperative care to include pain control, antibiotics, and physical therapy. Dictated By: Sean Herzog MD /olga/jo ann /Document#: [id number] LEOP[facility]
--- NOTE | 2016-09-15 15:14 | DS ---
DATE OF ADMISSION: 09/04/2016 DATE OF DISCHARGE: 09/07/2016 ADMITTING DIAGNOSIS:: L5-S1 disc disease. FINAL DIAGNOSES: L5-S1 disc disease. HOSPITAL COURSE: The patient was taken to the operating room on 09/04/2016 and underwent anterior-posterior lumbar fusion. The patient was admitted to the [facility] after undergoing the above procedure. His postoperative course was uncomplicated. By postoperative day three, he was deemed stable for discharge. FOLLOWUP: He will follow up in the office of the undersigned. Dictated By: Sean Herzog MD /olga/margaret /Document#: [id number]
== END 2016-09-07 15:50 | disposition home or self-care (01) | DRG 455 ==
LOC: REC 09-04 12:00 → MS1 09-04 20:05
PROVIDERS: ADMIT Specialist; ATTEND Specialist
PROC: 0SG30AJ Fusion of Lumbosacral Joint with Interbody Fusion Device, Posterior Approach, Anterior Column, Open Approach (ICD-10-PCS; 2016-09-04)
PROC: 0ST40ZZ Resection of Lumbosacral Disc, Open Approach (ICD-10-PCS; 2016-09-04)
PROC: 0SG00A0 Fusion of Lumbar Vertebral Joint with Interbody Fusion Device, Anterior Approach, Anterior Column, Open Approach (ICD-10-PCS; principal; 2016-09-04 14:00)
DX: M51.17 Intervertebral disc disorders with radiculopathy, lumbosacral region (principal); E87.5 Hyperkalemia; I10 Essential (primary) hypertension; Z90.5 Acquired absence of kidney; E66.9 Obesity, unspecified; Z68.31 Body mass index [BMI] 31.0-31.9, adult
CPT/HCPCS: 72110; 80048; 82040; 83735; 84100; 85025; 86850; 86900; 86901; 86920; 86999; 97116; 97162; 97530; C1713; C9113; J0360; J0690; J1100; J1170; J1644; J2250; J2370; J2405; J2710; J3010; J3480; J7999; V2790